=== PATIENT | female | born 1980 | race Caucasian/White ===

== ENCOUNTER 2023-11-01 15:56 | Emergency (ER) | payer OTHER, SELFPAY ==
--- NOTE | ~2023-11-01 | XR_ITS ---
EXAMINATION: XR KNEE, LEFT CLINICAL INFORMATION: Mechanical fall onto left knee with bruising COMPARISON: None available. TECHNIQUE: Four views of the left knee. FINDINGS: Soft tissue stranding and swelling is seen medially in the thigh at the level of the knee. No fracture or joint effusion. Alignment is anatomic. Joint spaces are maintained. No abnormal soft tissue calcification. XR/XR knee LT 3V IMPRESSION: Soft tissue swelling and stranding medially in the thigh at the level of the knee. No fracture or joint effusion.
[2023-11-01 16:42] VITALS: BP 142/78; PULSE 100; RESP 16; TEMP 36.9; O2SAT 97; BMI 48.5
--- NOTE | 2023-11-01 16:45 | ED.LOWEXIN ---
HPI - Extremity Injury (Lower) General Chief Complaint: Extremity Injury, Lower Stated Complaint: Fall at work/L knee pain Time Seen by Provider: 11/01/23 18:33 Source: patient Mode of arrival: wheelchair Limitations: no limitations History of Present Illness HPI Narrative: Patient is a 43-year-old female who presents emergency department for evaluation. She states while at work today; [employer], she had a mechanical trip and fall landing onto her left knee. She was evaluated at an urgent care by advised him and of her employer, and was sent to the emergency department for x-ray to be obtained. She reports pain diffusely throughout the anterior knee, has pain and a limping gait. Denies any numbness or tingling. Admits to low-dose aspirin usage no other anticoagulants. She denies associated head strike or loss of consciousness Related Data Allergies Allergy/AdvReac Type Severity Reaction Status Date / Time Iodinated Contrast Media Allergy Intermediate Anaphylaxis Verified 11/01/23 16:43 [IV Contrast Dye] Review of Systems Review of Systems: Yes all other systems are reviewed and are negative [facility] Past Medical History Attestation statement: The following information was validated with the patient. Source: old records reviewed Social History Social History Advance Directives: No Advance Directives Information Provided: No Do you have a plan to hurt others: No Plan Physical Exam Vital Signs: Vital Signs: Last Vital Signs Temp 98.3 F 11/01/23 18:54 Pulse 91 11/01/23 18:54 Resp 18 11/01/23 18:54 BP 139/71 11/01/23 18:54 Pulse Ox 93 11/01/23 18:54 O2 Del Method Room Air 11/01/23 18:54 BMI result Body Mass Index 48.5 Appearance: Alert.?Oriented to person, place and time. No acute distress.?Normal affect.? Neck: Normal inspection.? Neck supple.?? CVS: Heart sounds normal. Normal heart rate and rhythm.? Pulses normal.?? Respiratory: No respiratory distress.? Lung sounds clear to auscultation bilaterally?? Abdomen: Soft and non-tender. Normoactive bowel sounds Skin: Skin warm and dry.? Normal skin color.? Extremities: No lower extremity edema.? No calf ttp?extensive ecchymosis and swelling to the left knee primarily along the superior medial and inferior aspect overlying the patella as well. No obvious effusion. No obvious deformity. Valgus stress test positive. Anterior drawer test negative. 2+ DP/PT pulse Neuro: Moves all extremities spontaneously. Sensation intact bilaterally. . No focal neuro deficits. Ambulates antalgic gait. Course Course Course Narrative: This is a Rapid Medical Examination (RME) performed by Shasta Narvaez PA-C in triage. Full HPI, ROS, assessment and treatment plan per primary provider in the Main ED. 43 yo female here w/ left knee pain s/p mechanical trip and fall at work, landing onto left knee. seen at , sent here for xr. +noted ecchymosis and swelling to anterior left knee. Able to ambulate with antalgic gait however prefers wheelchair. Plan: xr Medical Decision Making Medical Decision Making MDM Narrative: Patient is a 43-year-old female who presents emergency department for evaluation of mechanical trip and fall with resultant left knee pain while at work. X-ray obtained reveals soft tissue swelling and stranding medially corresponding to the area of ecchymosis and notable swelling. No evidence of fracture or joint effusion. Given her degree of pain and examination findings, an josé miguel bandage was applied in addition to a knee immobilizer, she has crutches she arrived with and was instructed on appropriate usage with return demonstration. toe touch weight-bearing until evaluated by workman's comp/Orthopedics. She was advised to contact her employer to determine their work-related injury follow-up protocols. Advised of worrisome signs and symptoms that would warrant re-evaluation in the emergency department. All questions answered. Stable for discharge Differential Diagnosis Differential Diagnoses: The differential diagnosis associated with the presentation includes (Ligamentous injury, fracture, effusion, less likely dislocation) Independent Interpretation I performed an independent interpretation of an: Plain X-Ray (No acute fracture) Radiology Impression Discussion of test interpretation with radiology: I have reviewed the radiologist's reading. Radiologist Impression: XR/XR knee LT 3V IMPRESSION: Soft tissue swelling and stranding medially in the thigh at the level of the knee. No fracture or joint effusion. External Record Review External record reviewed: Outpatient record Prescription Management I considered prescription management with: Pain Medication Discharge Plan Discharge Clinical Impression: Knee sprain Patient Disposition: Home, Self-Care Instructions: Crutch Instructions (ED), How to Use an Elastic Bandage (ED), R.I.C.E. Treatment (ED) Additional Instructions: You can take ibuprofen 200 mg, 3 tablets (600mg) every 6-8 hours as needed for pain, in addition to Tylenol 500 mg, 2 tablets (1,000mg) every 4-6 hours as needed for pain, but not to exceed 3 doses daily (3,000mg).? José Miguel bandage for compression. Apply ice to the area 10-15 minutes 3-4 times daily. Use the knee immobilizer any time that you are out of bed in addition to the crutches, toe-touch weight-bearing. As discussed, please contact your employer to determine their follow-up protocols for work-related injuries. I have provided you the contact information for work connection that is associated with our hospital in addition to the orthopedics department that is associated with our hospital Referrals: [facility] [Provider Group] Fidel Gil PA-C [Physician Stove Mechanic] - Stand Alone Forms: Work/School Release Print Language: Bermudian
[2023-11-01 18:54] VITALS: BP 139/71; PULSE 91; RESP 18; TEMP 36.8; O2SAT 93
[2023-11-01 20:08] VITALS: BP 138/72; PULSE 89; RESP 18; TEMP 36.8; O2SAT 97
== END 2023-11-01 20:09 | disposition home or self-care (01) ==
PROVIDERS: Emergency Provider Internal Medicine
DX: S83.92XA Sprain of unspecified site of left knee, initial encounter (principal); W01.0XXA Fall on same level from slipping, tripping and stumbling without subsequent striking against object, initial encounter; Y93.9 Activity, unspecified; Y92.9 Unspecified place or not applicable; Y99.0 Civilian activity done for income or pay
CPT/HCPCS: 73562; 99283

== ENCOUNTER 2023-11-15 13:04 | Outpatient (AMB) | payer OTHER, SELFPAY ==
--- NOTE | 2023-11-15 13:11 | A.OFFVIS_ITS ---
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 MRI was done at [facility] on 11/13/23. Patient reports she had a mechanical trip and fall landing onto her left knee. She mentions having a lot of pain and swelling on top of her knee. The patient has read her MRI report. She questions whether or not she dislocated her patella. 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 Exam Const Other: Well-nourished well-developed very friendly female awake alert and oriented x3 in no acute distress Extrem Other: Left knee examination shows moderate diffuse swelling, no open skin lesions, difficulty palpating her patella because of the swelling, mild to moderate discomfort with active range of motion Results Reviewed Results Reviewed: MRI report of the patient's left knee from November 13, 2023 shows moderate lateral patellar subluxation, with mild cartilage thinning along the lateral patellar facet and prominent cartilage irregularity with several full-thickness defects along the medial patellar facet.... Mild insertional tendinopathy of the distal patellar and quadriceps tendons, prominent periarticular soft tissue edema, a lobulated heterogeneous collection in the subcutaneous fat along the anterior medial knee which is probably soft tissue hematoma Assessment & Plan Assessment & Plan (1) Left knee pain: Code(s): M25.562 - Pain in left knee Category: Medical Plan Ms. James presents with left knee pain and swelling most likely due to a large soft tissue hematoma. Per the MRI report she does have lateral patellar subluxation which is most likely chronic in nature. The patient does question whether or not she has patella instability. For further information regarding the possibility of patella instability I will have her evaluated by my partner, Dr. Slater. I discussed with the patient the fact that her symptoms should gradually returned to baseline without surgical intervention. Because of the patient's diffuse swelling we will hold off on formal physical therapy for now. She will contact me prior to her appointment with Dr. Slater should her symptoms worsen in any way. I spent 22 minutes in reviewing the patient's records and imaging studies, seeing the patient and documenting in the medical record. Coding Level of Care Code New Pt Level 3 (32323) Diagnoses Left knee pain M25.562
== END 2023-11-15 14:08 | disposition home or self-care (01) ==
PROVIDERS: Visit Provider Orthopaedic Surgery
DX: M25.562 Pain in left knee (principal)
CPT/HCPCS: 99203

== ENCOUNTER → 2023-11-15 13:04 | Outpatient (BNVA) | payer OTHER, SELFPAY | PROVIDERS: Visit Provider Orthopaedic Surgery | DX: M25.562 Pain in left knee (principal) | CPT/HCPCS: 99202 ==